=== PATIENT | female | born 1980 | race Caucasian/White ===

== ENCOUNTER 2018-09-27 22:38 | Inpatient (IN) | payer MEDICAID ==
[~2018-09-27] VITALS: Ht 170.2 cm; Wt 90.0 kg
[~2018-09-27 22:38] MED LIST: MULVITMINE; PROM6.25SY PO
[2018-09-27 23:35] LABS: BASOPHILS ABSOLUTE AUTO 0.04 K/mm3 (0.00-0.23); BASOPHILS PERCENT AUTO 0 % (0-2); EOSINOPHILS ABSOLUTE AUTO 0.03 K/mm3 (0.00-0.68); EOSINOPHILS PERCENT AUTO 0 % (0-6); Hematocrit 34.3 % (33.0-51.0); Hemoglobin 12.3 g/dL (11.5-16.0); IMMATURE GRAN ABSOLUTE AUTO 0.07 K/mm3 (0.00-0.10); IMMATURE GRAN PERCENT AUTO 1 % (0-1); LYMPHOCYTES ABSOLUTE AUTO 1.55 K/mm3 (0.84-5.20); LYMPHOCYTES PERCENT AUTO 12 % (21-46); MONOCYTES ABSOLUTE AUTO 0.99 K/mm3 (0.16-1.47); MONOCYTES PERCENT AUTO 8 % (4-13); Mean Corpuscular HGB 33.2 pg (26.0-34.0); Mean Corpuscular HGB Conc 35.9 g/dL (31.5-36.5); Mean Corpuscular Volume 93 fL (80-100); Mean Platelet Volume 11.1 fL (9.1-12.4); NEUTROPHILS ABSOLUTE AUTO 10.11 K/mm3 (1.96-9.15); NEUTROPHILS PERCENT AUTO 79 % (41-73); Platelet Count 221 K/mm3 (150-400); RDW Coefficient Variation 13.5 % (11.7-14.2); RDW Standard Deviation 45.5 fL (35.1-46.3); Red Blood Cell Count 3.71 M/mm3 (3.80-5.20); White Blood Cell Count 12.79 K/mm3 (4.00-11.30)
[2018-09-28 00:21] LABS: PCO2 Cord - Arterial 44.9 mmHg (40-50); PCO2 Cord - Venous 32.8 mmHg (40-50); PO2 Cord - Arterial < 12 mmHg (16-20); PO2 Cord - Venous 20.6 mmHg (28-32); pH Cord - Arterial 7.31 (7.28-7.35); pH Umbilical Cord - Venous 7.39 (7.26-7.35)
== END 2018-09-28 10:25 | disposition home or self-care (01) | DRG 807 ==
LOC: OBS 22:38 → BC 22:38 → OBS 23:08 → BC 23:11
PROVIDERS: Obstetrics & Gynecology
PROC: 10E0XZZ Delivery of Products of Conception, External Approach (ICD-10-PCS; principal; 2018-09-28)
DX: O32.1XX0 Maternal care for breech presentation, not applicable or unspecified (principal); Z37.0 Single live birth; Z3A.40 40 weeks gestation of pregnancy
CPT/HCPCS: 36415; 59025; 82803; 85025; 86850; 86900; 86901; J0690; J1100; J1885; J2210; J2405; J2590; J2765; J7120